=== PATIENT | female | born 1995 | race Caucasian/White ===

== ENCOUNTER 2021-03-09 15:00 | Inpatient (IN) ==
[2021-03-09] MEDS ORDERED: LACTATED RINGERS 1,000 ML IV ONE (15:15)
[2021-03-09] MEDS ORDERED: ONDANSETRON 4 MG/2 ML VIAL IV PRN (15:15)
[2021-03-09 15:53] LABS: Basophils % 0.2 % (0.0-0.8); Eosinophils # 0.1 10*3/uL (0.0-0.87); Hematocrit 34.8 VOL% (35.7-47.0); Hemoglobin 11.3 GM/DL (12.0-16.0); Immature Granulocytes % 1.2 %; Immature Granulocytes Absolute 0.15 #; Lymphocytes # 2.6 10*3/uL (1.4-4.0); Lymphocytes % 20.6 % (21.3-54.2); Mean Corpuscular HGB Conc 32.5 GM/DL (32-36); Mean Corpuscular Volume 90.2 FL (87-102); Mean Platelet Volume 9.6 FL (9.6-12.0); Monocytes % 8.5 % (1.7-12.7); Neutrophils % 68.5 % (38.7-73.9); Platelet Count 245 T/CUMM (130-400); Red Blood Count 3.86 MC/CUMM (3.8-5.5); Red Cell Distribution Width 13.3 % (9.3-17.3); White Blood Count 12.5 T/CUMM (4-12)
[2021-03-09 16:15] LABS: Alanine Aminotransferase 17 U/L (13-56); Albumin 2.6 G/DL (3.4-5.0); Alkaline Phosphatase 70 U/L (45-117); Aspartate Amino Transferase 12 U/L (0-37); Bilirubin,Total < 0.39 MG/DL (0.20-1.00); Blood Urea Nitrogen 7 MG/DL (7-18); Calcium 8.3 MG/DL (8.5-10.1); Carbon Dioxide 23 MMOL/L (21-32); Estimated Glom Filtration Rate 168 ML/MIN; Glucose 107 MG/DL (74-106); Osmolality,Calculated 276.4 MOS/KG (273-304); Sodium 140 MMOL/L (136-145); Total Protein 6.8 G/DL (6.4-8.2)
[2021-03-09] MEDS: LACTATED RINGERS 1,000 ML IV SCH (16:21)
[2021-03-09] MEDS: OXYTOCIN/LR 20 UNIT/1,000 ML BAG IV SCH (16:22)
[2021-03-09] MEDS ORDERED: AMPICILLIN INJ 2,000 MG in SODIUM CHLORIDE 0.9% 100 ML IV ONE (17:23)
[2021-03-09] MEDS: AMPICILLIN INJ 1,000 MG in SODIUM CHLORIDE 0.9% 100 ML IV SCH (21:09)
[2021-03-10] MEDS: AMPICILLIN INJ 1,000 MG in SODIUM CHLORIDE 0.9% 100 ML IV SCH ×5 (00:47→17:40)
[2021-03-10] MEDS: LACTATED RINGERS 1,000 ML IV SCH (02:47)
[2021-03-10] MEDS: OXYTOCIN/LR 20 UNIT/1,000 ML BAG IV SCH (13:33)
[2021-03-10] MEDS ORDERED: BUTORPHANOL 2 MG/ML VIAL ONE (19:16)
[2021-03-10] MEDS ORDERED: BUTORPHANOL 2 MG/ML VIAL IV PRN (19:19)
[2021-03-10] MEDS ORDERED: OXYTOCIN/LR 20 UNIT/1,000 ML BAG IV ONE (19:59)
[2021-03-10] MEDS ORDERED: miSOPROStoL 200 MCG TABLET ONE (19:59)
[2021-03-10] MEDS ORDERED: TRANEXAMIC ACID 1,000 MG/10 ML VIAL ONE (19:59)
[2021-03-10] MEDS ORDERED: CARBOPROST TROMETHAMINE 250 MCG/ML AMP IM ONE (20:00)
[2021-03-10] MEDS ORDERED: METHYLERGONOVINE 0.2 MG/1 ML AMP ONE (20:00)
[2021-03-10 20:28] LABS: Cord Arterial Blood HCO3 22.9 MMOL/L
[2021-03-10 20:31] LABS: Cord Venous Blood PCO2 40.2 MMHG; Cord Venous Blood PO2 28.3
[2021-03-10] MEDS ORDERED: oxyCODONE/ACETAMINOPHEN 5-325 MG TABLET PO PRN (23:33)
[2021-03-11] MEDS ORDERED: IBUPROFEN 800 MG TABLET PO PRN
[2021-03-11] MEDS ORDERED: OXYTOCIN/LR 20 UNIT/1,000 ML BAG IV ONE (00:44)
[2021-03-11] MEDS ORDERED: BISACODYL 10 MG SUPP RECTAL PRN (03:18)
[2021-03-11 06:03] LABS: Basophils % 0.2 % (0.0-0.8); Eosinophils # 0.1 10*3/uL (0.0-0.87); Eosinophils % 0.5 % (0.00-10.9); Hematocrit 33.5 VOL% (35.7-47.0); Hemoglobin 11.1 GM/DL (12.0-16.0); Immature Granulocytes % 1.2 %; Immature Granulocytes Absolute 0.21 #; Lymphocytes # 2.5 10*3/uL (1.4-4.0); Lymphocytes % 14.1 % (21.3-54.2); Mean Corpuscular HGB Conc 33.1 GM/DL (32-36); Mean Corpuscular Volume 89.8 FL (87-102); Mean Platelet Volume 9.8 FL (9.6-12.0); Monocytes % 8.1 % (1.7-12.7); Neutrophils % 75.9 % (38.7-73.9); Platelet Count 231 T/CUMM (130-400); Red Blood Count 3.73 MC/CUMM (3.8-5.5); Red Cell Distribution Width 13.2 % (9.3-17.3); White Blood Count 17.8 T/CUMM (4-12)
[2021-03-11] MEDS ORDERED: RHO(D) IMMUNE GLOBULIN 300 MCG SYRINGE IM ONE (08:14)
[2021-03-11] MEDS ORDERED: MULTIVITAMIN (PRENATAL) TABLET PO SCH (09:00)
[2021-03-11] MEDS: DOCUSATE SODIUM 100 MG CAPSULE PO SCH ×2 (09:21→21:27)
[2021-03-12 08:26] VITALS: BP 121/72
[2021-03-12] MEDS: DOCUSATE SODIUM 100 MG CAPSULE PO SCH (09:14)
== END 2021-03-12 16:50 | disposition home or self-care (01) | DRG 807 ==
LOC: N.LDOUT 15:00 → N.LD 15:04 → N.OB 03-10 22:42
PROVIDERS: ADMIT Obstetrics & Gynecology; ATTEND Obstetrics & Gynecology